=== PATIENT | female | born 1960 | race Caucasian/White ===

== ENCOUNTER 2024-08-22 10:32 | Outpatient (CLI) | payer MEDICARE, SELFPAY ==
[2024-08-22 10:37] VITALS: BP 171/74; PULSE 84; RESP 16; TEMP 36; O2SAT 98
[2024-08-22] MEDS: 0.9% NaCl IVPB Med Flush (100mL) 15 ML IV (10:49)
[2024-08-22] MEDS: Zoledronic Acid 5 MG 100 ML 300 MG IV (10:50)
[2024-08-22 11:24] VITALS: BP 142/71; PULSE 77; RESP 16
== END 2024-08-22 23:59 | disposition home or self-care (01) ==
PROVIDERS: Referring Provider Internal Medicine Endocrinology, Diabetes & Metabolism; Visit Provider Internal Medicine Endocrinology, Diabetes & Metabolism
DX: M81.0 Age-related osteoporosis without current pathological fracture (principal)
CPT/HCPCS: 96365; A4216; J3489